=== PATIENT | female | born 1975 | race Caucasian/White ===

== ENCOUNTER 2016-08-24 12:38 | Observation (INO) | payer OTHER ==
[2016-08-24] VITALS (7 sets, daily range): BP systolic 120–150; BP diastolic 54–78; Ht 157.5 cm; Wt 65.9 kg
[~2016-08-24] VITALS: Ht 157.5 cm; Wt 65.9 kg
[2016-08-24 14:01] LABS: BASOPHILS 0.1 % (0.0-2.0); EOSINOPHILS 0.3 % (0-7); HEMATOCRIT 23.5 % (36.0-48.0); IMMATURE GRANULOCYTES 0.3 % (0-5); LYMPHOCYTES 8.9 % (15-50); MCH 26.2 pg (26.0-34.0); MCHC 30.2 g/dL (31.0-37.0); MCV 86.7 fL (80.0-100.0); MEAN PLATELET VOLUME 10.6 fL (7.4-10.4); MONOCYTES 2.3 % (2-11); NEUTROPHILS 88.1 % (40-80); PLATELET COUNT 337 10x3/uL (130-400); RBC 2.71 10x6/uL (4.00-5.40); RDW 18.8 % (11.5-14.5); WBC 7.5 10x3/uL (4.8-10.8)
[2016-08-24 14:07] LABS: HEMOGLOBIN 7.1 g/dL (12-16)
[2016-08-24 14:16] LABS: HCG SERUM NEGATIVE (NEGATIVE)
[2016-08-24 14:18] LABS: ALBUMIN 3.2 g/dL (3.4-5.0); ANION GAP 11.9 mmol/L (8-16); BILIRUBIN - TOTAL 0.16 mg/dL (0.2-1.3); CALCIUM 8.6 mg/dL (8.5-10.1); CARBON DIOXIDE 27.8 mmol/L (21.0-32.0); CREATININE - SERUM 0.9 mg/dL (0.6-1.3); POTASSIUM - SERUM 3.7 mmol/L (3.5-5.1); PROTEIN - SERUM 6.7 g/dL (6.4-8.2)
[2016-08-24 15:07] LABS: APPEARANCE CLEAR (CLEAR); BILIRUBIN NEGATIVE (NEGATIVE); COLOR YELLOW (YELLOW); GLUCOSE NEGATIVE (NEGATIVE); KETONE NEGATIVE (NEGATIVE); LEUKOCYTE ESTERASE NEGATIVE (NEGATIVE); NITRITE NEGATIVE (NEGATIVE); PROTEIN NEGATIVE (NEGATIVE); SPECIFIC GRAVITY 1.015 (1.005-1.020); UROBILINOGEN NORMAL (NORMAL)
[2016-08-24 15:12] LABS: BACTERIA NONE SEEN /hpf (NONE SEEN); EPITHELIAL CELLS 0-5 /hpf (0-5); RED CELLS - URINE 0-5 /hpf (0-5); WHITE CELLS - URINE 0-5 /hpf (0-5)
[2016-08-24 16:15] LABS: INR 0.99 (0.85-1.17)
[2016-08-24 16:16] LABS: APTT 29.7 SECONDS (22.8-39.4)
--- NOTE | 2016-08-24 20:25 | NUR ---
RECEIVED PT VIA STRETCHER FROM ED, PT AMB TO BED, GAIT STEADY, PT TO BED, IV IN RIGH WRIST INTACT INFUSING FIRST UNIT OF PRBC, PT C/O IV "HURTING", INFORMED PT THAT IV CAN BE RESITED IF SHE WANTS IT, PT STATES "YES, I HAD ASKED THEM NOT TO PUT THE IV THERE BECAUSE THAT WRIST STAYS SWOLLEN BECAUSE OF MY RHEUMATOID ARTHRITIS", PT ORIENTED TO ROOM, BED IN LOW POSITION, SIDE RAILS X 2, CALL LIGHT IN REACH, INFORMED PT THAT SARAH TALBOT RN WILL BE IN TO RESTART IV AND DO ADMITTING ASSESSMENT
--- NOTE | 2016-08-24 20:32 | NUR ---
PT REQUESTING PIV BE RESITED FROM RIGHT WRIST TO D/T RA AND INCREASED SEVERE PAIN TO PIV SITE AT THIS. PIV INFUSING WITHOUT DIFFICULTY AND NO S/S OF INFILTRATION NOTED. PT STATES THAT SHE HAD REQUESTED THAT ER NURSE NOT SITE PIV IN WRIST D/T INCREASED PAIN R/T RA. PIV RESITED TO RIGHT FOREARM PER PT REQUEST X1. TOLERATED WELL
[2016-08-24] MEDS ORDERED: PREDNISONE5 MG PO (21:08)
[2016-08-24] MEDS ORDERED: FOLIC ACID1 MG PO (21:10)
[2016-08-24] MEDS ORDERED: NYSTATIN ORAL SU5 ML PO (21:10)
[2016-08-24] MEDS ORDERED: PLAQUENIL200 MG PO ×2 (21:11→21:12)
[2016-08-24] MEDS ORDERED: METHOTREXATE2.5 MG PO (21:13)
[2016-08-24] MEDS ORDERED: TYLENOL W/CODEI1 TAB PO (21:14)
--- NOTE | 2016-08-24 21:57 | NUR ---
FIRST UNIT PRBC TRANSFUSION COMPLETED. LINE SWITCHED TO FLUSH WITH NORMAL SALINE AT 50 MLS/HR. VSS. TOLERATED TRANSFUSION WELL WITHOUT S/S OF REACTION NOTED. WILL CONT TO MONITOR AND ASSIST PRN.
--- NOTE | 2016-08-24 22:10 | NUR ---
SECOND UNIT PRBC TRANSFUSION INITIATED IN RIGHT FOREARM PIV AT 75 MLS/HR. VSS. ADMISSION ASSESSMENT COMPLETED.
--- NOTE | 2016-08-24 22:25 | NUR ---
VSS. TRANSFUSION RATE INCREASED TO 100 MLS/HR. PT TOLERATING TRANSFUSION WELL WITH NO S/S OF REACTION NOTED AT THIS TIME. WILL CONT TO MONITOR.
--- NOTE | 2016-08-24 22:40 | NUR ---
V/S REMAIN STABLE. PT TOLERATING TRANSFUSION WELL. RATE INCREASED TO 125 MLS/HR. WILL CONT TO YAW CLOSELY AND ASSIST PRN.
--- NOTE | 2016-08-24 22:55 | NUR ---
V/S CONT TO REMAIN STABLE. PT TOLERATING TRANSFUSION WELL. RATE INCREASED TO 150 MLS/HR. WILL CONT TO MONITOR AND ASSIST PRN.
[2016-08-25 00:07] VITALS: BP 134/73
--- NOTE | 2016-08-25 00:07 | NUR ---
SECOND UNIT PRBC TRANSFUSION COMPLETED. VSS. TOLERATED TRANSFUSION WELL WITH NO S/S OF REACTION NOTE.
[2016-08-25 01:07] VITALS: BP 150/82
--- NOTE | 2016-08-25 01:07 | NUR ---
CALLED TO ROOM. PT VOMITED 300 MLS EMESIS WITH FOOD PARTICLES PRESENT IN TRASH CAN. LINENS CHANGED, TRASH CHANGED. ICE CHIPS AND WATER GIVEN. CHUX CHANGED. PT UP TO BATHROOM, CHANGED PERIPAD WITH HALF DOLLAR SIZED SPOT OF BRB NOTED TO PAD, NO CLOTS NOTED. VSS FOLLOWING BLOOD TRANSFUSION, PIV SL PER ORDERS. PT BACK TO BED AND RESTING COMFORTABLY.
[2016-08-25 02:38] LABS: BASOPHILS 0.3 % (0.0-2.0); EOSINOPHILS 1.2 % (0-7); IMMATURE GRANULOCYTES 0.1 % (0-5); LYMPHOCYTES 26.6 % (15-50); MCH 27.2 pg (26.0-34.0); MCHC 31.8 g/dL (31.0-37.0); MCV 85.5 fL (80.0-100.0); MEAN PLATELET VOLUME 10.7 fL (7.4-10.4); NEUTROPHILS 64.8 % (40-80); PLATELET COUNT 288 10x3/uL (130-400); RDW 16.6 % (11.5-14.5); WBC 7.3 10x3/uL (4.8-10.8)
[2016-08-25 02:48] LABS: HEMOGLOBIN 10.5 g/dL (12-16); RBC 3.86 10x6/uL (4.00-5.40)
--- NOTE | 2016-08-25 02:58 | NUR ---
LAB RESULTS BACK, INFORMED PT OF RESULTS AND THAT THIRD UNIT OF BLOOD WOULD NOT BE TRANSFUSED BASED ON LAB RESULTS AND STANDING ORDER. VERBALIZED UNDERSTANDING. DENIES PAIN AT THIS TIME. SPOUSE AND DAUGHTER REMAIN AT BEDSIDE. BED IN LOW POSITION. CL/PHONE WITHIN REACH. STATES THAT SHE HAS NOT CHANGED PADS SINCE LAST ONE RN SEEN.
--- NOTE | 2016-08-25 04:49 | NUR ---
ROUNDS MADE. PT SLEEPING AT THIS TIME. RESPIRATIONS REGULAR, NO S/S OF DISTRESS NOTED. SPOUSE AND DAUGHTER REMAIN AT BEDSIDE.
--- NOTE | 2016-08-25 06:36 | NUR ---
ROUNDS MADE. PATIENT RESTING AT THIS TIME. OPENED EYES WHEN RN OPENED DOOR. DENIES PAIN AT THIS TIME. DENIES NEEDS. SPOUSE AND DAUGHTER SLEEPING AT BEDSIDE. CL/PHONE WITHIN REACH.
[2016-08-25 07:45] VITALS: BP 148/80
--- NOTE | 2016-08-25 07:45 | NUR ---
RECEIVED PT AWAKE AND ALERT WITH FAMILY AT BEDSIDE. STATES THAT SHE IS FEELING MUCH BETTER THAN SHE FELT YESTERDAY WITH NO DIZZINESS. LABS RESULTS REVIEWED AND THIRD UNIT OF BLOOD NOT INDICATED. S/L TO RT FOREARM SHOWS NO ENDEMA, REDNESS OR FEVER. VITALS WERE TAKEN AND DOCUMENTED. ASSESSMENT DONE AND DOCUMENTED WITH NO ABNORMALITIES NOTED. S/R UP X 2, BED IN LOWEST POSITION, CALL LIGHT WITHIN REACH. STATES NO PAIN AND NO FURTHER NEEDS AT THIS TIME. WILL CONTINUE TO MONITOR.
--- NOTE | 2016-08-25 08:00 | NUR ---
PATIENT AWAKE AND ALERT. NO NEEDS NOTED AT THIS TIME. DISCUSSED NEED FOR HOME MEDICATIONS. DR. WEINBERG HERE.
--- NOTE | 2016-08-25 08:15 | NUR ---
PROVIDED FRESH ICE WATER AND JUICE REQUESTED. PT INQUIRING WHEN SHE WILL BE ALLOWED TO GO HOME. INFORMED THAT WILL ROUND AND SHE WILL DISCUSS IT THEN. STATES NO FURTHER NEEDS AT THIS TIME.
[2016-08-25] MEDS ORDERED: MEGACE40 MG PO (08:43)
[2016-08-25] MEDS ORDERED: FERROUS SULFAT325 MG PO (08:43)
[2016-08-25] MEDS ORDERED: COLACE100 MG PO (08:43)
--- NOTE | 2016-08-25 09:39 | NUR ---
PROVIDED MEDICATION ORDERED AND EDUCATED ON NEW MEDS GIVEN. DISCUSSED APPOINTMENT. STATES THAT ASKED HER TO CALL SUNDAY MORNING TO MOVE UP THE DATE OF HER HYST. SURGERY. STATES THAT SHE WILL FOLLOW THROUGH WITH HER CALL AND APPOINTMENT. STATES NO FURTHER NEEDS AT THIS TIME.
--- NOTE | 2016-08-25 10:06 | NUR ---
DC'd S/L TO RT FOREARM WITH TIP INTACT, NO REDNESS, EDNEMA OR FEVER PRESENT. TOLERATED WELL. DISCUSSED DISCHARGE AND REAFFIRMED HER UNDERSTANDING OF THE IMPORTANCE OF FOLLOWING UP WITH PHYSICIAN. STATES UNDERSTANDING. NO FURTHER NEEDS AT THIS TIME.
--- NOTE | 2016-08-25 10:20 | NUR ---
PT SITTING ON BED. DISCUSSED DISCHARGE INSTRUCTIONS. PROVIDED MEDICATION SCRIPTS AND INSTRUCTED PT TO HAVE FILLED. SHE STATES UNDERSTANDING. GAVE PHYSICIANS FOR WOMEN'S PHONE NUMBER AND REMINDED TO CALL SUNDAY MORNING. DISCUSSED SIGNS AND SYMPTOMS THAT WOULD NECESSITATE HER TO RETURN TO ER. HEAVY BLEEDING, FAINTING, OR HAVE AN IMPENDING SENSE OF DOOM. STATES UNDERSTANDING.
--- NOTE | 2016-08-25 10:35 | NUR ---
PT WAS DISCHARGED VIA WHEELCHAIR WITH FAMILY IN ATTENDENCE.
[2016-09-05] MEDS ORDERED: PREDNISONE5 MG PO (15:35)
[2016-09-05] MEDS ORDERED: PREDNISONE2.5 MG PO (15:35)
== END 2016-08-25 10:35 | disposition home or self-care (01) ==
LOC: D.ER 12:38 → D.WS 18:23 → D.SDCHOLD 18:23 → D.WS 18:23 → OBSVTIME 18:23 → D.WS 18:41
PROVIDERS: Emergency Medicine; Physician Assistant; ADMIT Specialist
DX: D62 Acute posthemorrhagic anemia (principal); N93.9 Abnormal uterine and vaginal bleeding, unspecified; F17.200 Nicotine dependence, unspecified, uncomplicated; D25.9 Leiomyoma of uterus, unspecified

== ENCOUNTER 2016-09-07 05:10 | Inpatient (IN) | payer OTHER ==
[2016-09-05 15:58] LABS: BASOPHILS 0.2 % (0.0-2.0); EOSINOPHILS 0.1 % (0-7); HEMATOCRIT 39.5 % (36.0-48.0); HEMOGLOBIN 12.3 g/dL (12-16); IMMATURE GRANULOCYTES 0.2 % (0-5); LYMPHOCYTES 8.2 % (15-50); MCHC 31.1 g/dL (31.0-37.0); MCV 89.8 fL (80.0-100.0); MEAN PLATELET VOLUME 10.8 fL (7.4-10.4); NEUTROPHILS 86.3 % (40-80); PLATELET COUNT 297 10x3/uL (130-400); RDW 19.3 % (11.5-14.5); WBC 9.5 10x3/uL (4.8-10.8)
[2016-09-05 16:16] LABS: ANION GAP 16.5 mmol/L (8-16); CARBON DIOXIDE 22.7 mmol/L (21.0-32.0); CREATININE - SERUM 0.9 mg/dL (0.6-1.3); POTASSIUM - SERUM 4.2 mmol/L (3.5-5.1)
[~2016-09-07] VITALS: Ht 157.5 cm; Wt 70.0 kg
[2016-09-07] VITALS (13 sets, daily range): BP systolic 130–191; BP diastolic 68–111; Ht 157.5 cm; Wt 70.0 kg
[~2016-09-07 05:10] MED LIST: COLACE100 MG PO; FERROUS SULFAT325 MG PO; FOLIC ACID1 MG PO; MEGACE40 MG PO; METHOTREXATE2.5 MG PO; NYSTATIN ORAL SU5 ML PO; PLAQUENIL200 MG PO; PREDNISONE2.5 MG PO; PREDNISONE5 MG PO; TYLENOL W/CODEI1 TAB PO
[2016-09-07 06:13] LABS: HCG URINE NEGATIVE (NEGATIVE)
--- NOTE | 2016-09-07 11:00 | NUR ---
PT WAS RECEIVED FROM RECOVERY BY STRETCHER. PT TRANSFERRED TO BED. GEN- PT IS SLEEPY BUT EASILY AWAKENS. SCD'S HOOKED UP LE'S. IV INTACT AND PATENT LEFT FOREARM WITH LACTATED RINGERS INFUSING AT 125 CC/HR. DILAUDID MEDICAL PSYCHOTHERAPIST INITIATED. PT INSTRUCTED ON USE. MARQUEZ INTACT WITH METHYLENE BLUE IN URINE. LUNGS- CLEAR. HEART RRR. ABD SOFT WITH TENDERNESS WITH DRESSING INTACT. PAD WITH NO BLEEDING NOTE. PT IS ON 2 LITERS O2 NC. BED IS LOW, CALL LIGHT IN REACH AND SIDE RAILS UP X 2.
--- NOTE | 2016-09-07 11:38 | NUR ---
REASSESSED PTS PAIN. RATES PAIN 11/20. REQUESTS ANOTHER BLANKET. DENIES OTHER NEEDS. BED LOW. PHONE AND CALL LIGHT IN REACH. SIDE RAILS UP X2.
--- NOTE | 2016-09-07 12:00 | NUR ---
PT BP 178/111. NO DISTRESS NOTED. PT STATES THAT HER PAIN IS MUCH BETTER. LIGHT LOCHIA RUBRA NOTED TO SAMUEL PAD. NO LOCHIA NOTED TO BLUE PAD. INCISIONAL DRESSING CDI. NOTIFIED DR. WILLIS CONCERNING PTS BLOOD PRESSURE. ORDERED HYDROLAZINE 5 MG TO BE GIVEN NOW. PULSE 102. RESP 18. O2 SAT 98%.
--- NOTE | 2016-09-07 12:21 | NUR ---
DR. WILLIS IN ROOM WITH PT.
--- NOTE | 2016-09-07 12:45 | NUR ---
WENT TO GIVE PT APRESOLINE IV AND NOTED THAT IV WAS INFILTRATED. SWELLING NOTED BEYOND SIE. IV D'CD.
--- NOTE | 2016-09-07 13:00 | NUR ---
IV RESITED TO LEFT HAND ON THIRD ATTEMPT, WITH 22 G CATH, FLUSHES EASILY WITH CURRENT IVF OF LR. NO REDNESS OR SWELLING NOTED TO IV SITE. PT'S FAMILY AT BEDSIDE. SRUP X 2, CALL LIGHT AND PHONE WITHIN REACH.
--- NOTE | 2016-09-07 13:30 | NUR ---
PT LYING IN BED WITH FAMILY MEMBERS AT BEDSIDE. DENIES NEEDS AT THIS TIME. BED LOW. PHONE AND CALL LIGHT IN REACH. SIDE RAILS UP X2.
--- NOTE | 2016-09-07 14:05 | NUR ---
PT LYING IN BED WITH FAMILY AT BEDSIDE. RATES PAIN /10. DENIES NEEDS. BED LOW. PHONE AND CALL LIGHT IN REACH. SIDE RAILS UP X2.
--- NOTE | 2016-09-07 14:25 | NUR ---
DR. HEARD IN ROOM WITH PT. NO NEEDS NOTED AT THIS TIME.
--- NOTE | 2016-09-07 15:00 | NUR ---
ATTACHED CATHETER STRAP TO PT THIGH. DENIES NEEDS AT THIS TIME. BED LOW. PHONE AND CALL LIGHT IN REACH. SIDE RAILS UP X2.
--- NOTE | 2016-09-07 15:20 | NUR ---
PT REQUESTED SPRITE. DENIES OTHER NEEDS. BED LOW. PHONE AND CALL LIGHT IN REACH. SIDE RAILS UP X2.
[2016-09-07 15:24] LABS: BASOPHILS 0.1 % (0.0-2.0); EOSINOPHILS 0 % (0-7); HEMATOCRIT 36.9 % (36.0-48.0); HEMOGLOBIN 11.4 g/dL (12-16); IMMATURE GRANULOCYTES 0.2 % (0-5); MCH 27.9 pg (26.0-34.0); MCHC 30.9 g/dL (31.0-37.0); MCV 90.2 fL (80.0-100.0); MEAN PLATELET VOLUME 10.7 fL (7.4-10.4); MONOCYTES 7.9 % (2-11); NEUTROPHILS 84.8 % (40-80); PLATELET COUNT 289 10x3/uL (130-400); RBC 4.09 10x6/uL (4.00-5.40); RDW 19.6 % (11.5-14.5); WBC 11.1 10x3/uL (4.8-10.8)
--- NOTE | 2016-09-07 15:33 | NUR ---
PT VOMITTED APPROX. 100 CC INTO FRACTURE BEDPAN. NOTIFIED DR. WILLIS CONCERNING VOMITTING. HE STATED TO PUT IN AN ORDER OF ZOFRAN.
[2016-09-07 15:35] LABS: CALC OSMOLALITY 276 mosm/kg (275-300); CALCIUM 8.9 mg/dL (8.5-10.1); CARBON DIOXIDE 24.3 mmol/L (21.0-32.0); CHLORIDE - SERUM 107 mmol/L (98-107); CREATININE - SERUM 0.8 mg/dL (0.6-1.3); GLUCOSE 94 mg/dL (74-106); POTASSIUM - SERUM 3.9 mmol/L (3.5-5.1); SODIUM 140 mmol/L (136-145); UREA NITROGEN 7 mg/dL (7-18); eGFR NON AFRICAN AMERICAN 84 mL/min (90-120)
--- NOTE | 2016-09-07 16:10 | NUR ---
IV PATENT R HAND. PT VOMITED AND IS STILL EXPERIENCING SOME NAUSEA. ZOFRAN 4 MG IV GIVEN. PT RATES PAIN A 3/10. FAMILY AT BEDSIDE.
--- NOTE | 2016-09-07 16:25 | NUR ---
PT LYING IN BED WITH FAMILY MEMBERS AT BEDSIDE. ADMINISTERED HCTZ ORAL. SOLU CORTEF IVP AND PROTONIX IVP. PT REFUSED NICODERM PATCH. D/C'D 02 AND INSTRUCTED PT TO LET US KNOW IF SHE FELT SOB. 02 SATS HAVE REMAINED WNL. PT DENIES OTHER NEEDS AT THIS TIME. BED LOW. PHONE AND CALL LIGHT IN REACH. SIDE RAILS UP X2.
--- NOTE | 2016-09-07 17:19 | NUR ---
PT LYING IN BED RESTING. FAMILY AT BEDSIDE. RATES PAIN 0/10. DENIES NEEDS AT THIS TIME. BED LOW. PHONE AND CALL LIGHT IN REACH. SIDE RAILS UP X2.
--- NOTE | 2016-09-07 17:53 | NUR ---
PT LYING IN BED WITH FAMILY AT BEDSIDE. CHANGED PADS UNDER PT. LIGHT LOCHIA RUBRA NOTED TO PT SAMUEL PAD. CLEANED PT UP WITH WET WASH CLOTH. PT DENIES OTHER NEEDS AT THIS TIME. BED LOW. PHONE AND CALL LIGHT IN REACH. SIDE RAILS UP X2.
--- NOTE | 2016-09-07 18:00 | NUR ---
PT C/O NAUSEA AND STATES SHE FEELS LIKE SHE IS GOING TO THROW UP. NOTIFIED DR. MUNIZ AND SHE ORDERED PHENERGAN 25 MG IM.
--- NOTE | 2016-09-07 18:30 | NUR ---
ADMINISTERED PHENERGAN TO LEFT DORSOGLUTEAL. PT TOLERATED WELL. DENIES OTHER NEEDS. BED LOW. PHONE AND CALL LIGHT IN REACH. SIDE RAILS UP X2.
--- NOTE | 2016-09-07 19:10 | NUR ---
PM ROUNDS MADE, PT IS VISITING WITH FAMILY AND FRIENDS, INFORMED PT THAT I WILL DO ASSESSMENT WHEN COMPANY LEAVES, PT DENIES NEEDS AT THIS TIME
--- NOTE | 2016-09-07 19:30 | NUR ---
ASSESSMENT PER FLOW SHEET, VS OBTAINED, IV IN LEFT HAND INTACT WITH NO REDNESS OR EDEMA INFUSING VIA PUMP LR AT 125 ML/HR, DILAUDID RADIOLOGICAL DEFENSE OFFICER TO DELIVER 0.2MG/10MINS FOR PAIN CONTROL, PT RATES INC PAIN 09/22, C/O SLIGHT NAUSEA, INFORMED PT THAT ZOFRAN WAS DUE AROUND 10PM AND THAT I WILL ADM IT THEN, PT VERBALIZES UNDERSTANDING, BIKINI INC WITH LARGE DRESSING CDI WITH NO DRAINAGE NOTED, SCANT VAG BLEEDING NOTED, SAMUEL PAD CHANGED, MARQUEZ CATH INTACT, DRAINING LIGHT GREEN URINE, EMPTIED 150 MLS FROM MARQUEZ CHAMBER TO MARQUEZ BAG, ENC PT TO DRINK PLENTY OF FLUIDS, FRESH H20 SERVED, PT DENIES FLATUS, PT INST ON AND DEMONSTRATED I.S., SCD'S ON AND WORKING PROPERLY, PT DENIES NEEDS, SPOUSE AND SISTER AT BEDSIDE
--- NOTE | 2016-09-07 20:00 | NUR ---
PT AWAKE, TALKING TO SPOUSE, BEDDING PROVIDED TO SPOUSE, PT DENIES NEEDS AT THIS TIME
--- NOTE | 2016-09-07 21:25 | NUR ---
PT AWAKE, ADM 2100 MED SIVP PER MD ORDERS, SEE EMAR, EMPTIED 350 MLS OF LIGHTLY GREEN TINGED URINE FROM MARQUEZ CHAMBER TO MARQUEZ BAG, PT RATES INC PAIN 2/10, DENIES NAUSEA AT THIS TIME, DENIES NEEDS
--- NOTE | 2016-09-07 22:30 | NUR ---
PT AROUSES TO OPENING OF DOOR, DENIES NEEDS AT THIS TIME, SPOUSE AT BEDSIDE
[2016-09-08 00:18] VITALS: BP 146/77
--- NOTE | 2016-09-08 00:18 | NUR ---
PT AWAKE, VS OBTAINED, MARQUEZ CATH EMPTIED, SCD'S CONTINUE ON AND WORKING PROPERLY, PT DENIES NEEDS OR PAIN AT THIS TIME
--- NOTE | 2016-09-08 02:10 | NUR ---
PT AROUSES TO OPENING OF DOOR, DENIES NEEDS OR PAIN AT THIS TIME, SPOUSE AT BEDSIDE
[2016-09-08 04:21] VITALS: BP 141/71
--- NOTE | 2016-09-08 04:21 | NUR ---
PT RESTING WITH EYES CLOSED, AROUSES TO SOFT VERBAL STIMULATION, VS OBTAINED, I&O'S COLLECTED, ICE PACK LEAKED, GOWN, SHEET, AND BLANKET CHANGED, FRESH ICE PACK PROVIDED, PT RATES INC PAIN 08/22, NEW BAG OF LR HUNG, SEE EMAR, PT REQUESTED AND SERVED DIET LEMON TABLE [place], PT DENIES FURTHER NEEDS, SPOUSE AT BEDSIDE
--- NOTE | 2016-09-08 06:20 | NUR ---
PT RESTING WITH EYES CLOSED, RESP QUIET, NO DISTRESS NOTED, LEFT UNDISTURBED AT THIS TIME, SPOUSE AT BEDSIDE
--- NOTE | 2016-09-08 06:42 | NUR ---
LAB TO ROOM FOR BLOOD DRAW
[2016-09-08 07:13] LABS: BASOPHILS 0.1 % (0.0-2.0); EOSINOPHILS 0.6 % (0-7); HEMATOCRIT 37.1 % (36.0-48.0); HEMOGLOBIN 11.5 g/dL (12-16); IMMATURE GRANULOCYTES 0.1 % (0-5); LYMPHOCYTES 13.5 % (15-50); MCH 27.8 pg (26.0-34.0); MCV 89.6 fL (80.0-100.0); MEAN PLATELET VOLUME 10.8 fL (7.4-10.4); MONOCYTES 8.6 % (2-11); NEUTROPHILS 77.1 % (40-80); PLATELET COUNT 278 10x3/uL (130-400); RBC 4.14 10x6/uL (4.00-5.40); RDW 19.5 % (11.5-14.5)
[2016-09-08 07:20] LABS: WBC 8.3 10x3/uL (4.8-10.8)
[2016-09-08 07:28] LABS: ANION GAP 11.8 mmol/L (8-16); CALCIUM 9.6 mg/dL (8.5-10.1); CARBON DIOXIDE 28.9 mmol/L (21.0-32.0); CREATININE - SERUM 0.9 mg/dL (0.6-1.3); POTASSIUM - SERUM 3.7 mmol/L (3.5-5.1)
[2016-09-08 07:30] VITALS: BP 152/81
--- NOTE | 2016-09-08 07:40 | NUR ---
PATIENT IS AWAKE AND ALERT, DR. WILLIS HAS BEEN IN FOR ASSESSMENT. SHE C/O FEELING LIKE SHE NEEDS TO VOID, HER CATHETER HAS NOT DRAINED WELL THROUGH THE NIGHT, REQUIRING ADJUSTMENTS TO EMPTY HER BLADDER. DESPITE MY ADJUSTMENTS, ONLY 60CC DRAINED FROM BLADDER. REMOVED THE MARQUEZ CATHETER, SALINE LOCKED HER IV AND PROVIDED A REGULAR BREAKFAST AFTER ASSESSMENT COMPLETE. HER BOWEL SOUNDS ARE QUIET. ENCOURAGED HER TO TAKE IT SLOWLY AND DRINK PLENTY OF FLUIDS. ALSO DISCUSSED THE IMPORTANCE OF WALKING AROUND TO STIMULATE HER BOWELS AND ENCOURAGE GAS TO RELEASE. SHE STATES THAT SHE ISN'T YET PASSING GAS. HER LUNGS ARE DIMINISHED IN THE BASES BILATERALLY. DISCUSSED THE WAY IN WHICH THE INCENTIVE SPIROMETER WORKS AND HOW THIS IS IMPROTANT TO HER. SHE EXPRESSED UNDERSTANDING. HER CAME IN AND IS AT THE BEDISDE FOR THIS INSTRUCTION. ALSO DISCUSSED THE IMPORTANCE OF SMOKING CESSATION. RRR OF THE HEART. B/P NOTED.
--- NOTE | 2016-09-08 08:25 | NUR ---
PATIENT STATES THAT HER PAIN IS RATED A 2 ON THE PAIN SCALE. SHE IS RESTING WITH HER HOB 60 DEGREES WATCHING TV. AT THE BEDSIDE. DENIED NEEDS. ATE 25% OF HER BREAKFAST.
--- NOTE | 2016-09-08 09:40 | NUR ---
PATIENT RESTING, WATCHING TV WITH HER . NO NEEDS NOTED. CALL LIGHT IS WITHIN REACH.
--- NOTE | 2016-09-08 10:54 | NUR ---
CALL PLACED TO PHARMACY FOR MEDICATIONS. TOPHER IS RESTING QUIETLY IN HER BED, HOB ELEVATED 45 DEGREES. SHE HAD HER EYES CLOSED AND APPEARS TO HAVE BEEN SLEEPING WHEN SHE LOOKED UP AT ME. SHE STATES THAT HER PAIN IS MUCH BETTER. REMINDED HER TO CALL FOR ASSISTANCE WHEN SHE GETS UP TO THE RESTROOM TO URINATE. SHE DENIED THIS FEELING AT THIS TIME, STATES MAYBE IN A LITTLE WHILE. SPOUSE AT THE BEDISDE WATCHING TV. DENIED NEEDS CALL LIGHT IS WITHIN REACH, SIDERAILS UP X2. BED IN LOW POSITION.
--- NOTE | 2016-09-08 11:42 | NUR ---
PATIENT GIVEN PO PAIN MEDICATION FOR ABDOMINAL INCISION PAIN THAT SHE RATES A 2 DESPITE PURSED LIP BREATHING WHEN MOVING AROUND IN HER BED. SHE DOES ALSO C/O THE IV SL IN HER LEFT HAND HURTING HER. REMOVED. SHE QUESTIONS THE NEED FOR HER ARTHRITIS MECICATIONS. WILL DISCUSS WITH MD. SPOUSE IS AT THE BEDSIDE. CALL LIGHT IS WITHIN HER REACH. MONITORING.
--- NOTE | 2016-09-08 12:08 | NUR ---
CALL PLACED TO DR. WILLIS CONCERNING TOPHER'S REQUEST TO RESUME HER STEROIDS AND PLAQUENIL. HE STATES THAT HE WILL REVIEW THESE AND RESTART NECESSARY MEDICATIONS. INFORMED THE PATIENT. SHE IS EATING HER LUNCH AND DENIES NEEDS.
--- NOTE | 2016-09-08 12:19 | NUR ---
DR. AGARWAL HERE TO VISIT PATIENT.
--- NOTE | 2016-09-08 12:31 | NUR ---
TOPHER CURRENTLY RATES HER PAIN A 0. HER SPOUSE HAS GONE TO LUNCH. SHE STATES THAT WHEN HE RETURNS, THEY WILL WALK OUT INTO THE HALLWAY. SHE ATE 50% OF HER LUNCH AND DENIES PASSING GAS YET.
[2016-09-08 12:38] VITALS: BP 128/68
--- NOTE | 2016-09-08 13:28 | NUR ---
PATIENT HAS BEEN UP TO THE RESTROOM X2. IS CURRENTLY OUT AMBULATING IN THE HALLWAY. SHE RATES HER PAIN ABOUT A 0 THOUGH SHE IS SLOW AND PURSED LIP BREATHING AT TIMES. ENCOURAGED TO GO SLOW AND STAND UP STRAIGHT. SPOUSE WALKING WITH HER.
--- NOTE | 2016-09-08 13:47 | NUR ---
PATIENT RETURNED TO HER ROOM. SAID "I MADE IT" AND ACTUALLY APPEARS MORE COMFORTABLE. DENIES ANY INCREASE OF PAIN.
--- NOTE | 2016-09-08 15:48 | NUR ---
TOPHER IS UP TO THE RESTROOM WITH SPOUSE'S STAND BY ASSISTANCE. SHE IS RATING HER PAIN A 0. TOOK MOTRIN ANTICIPATING DISCOMFORT WHILE SHOWERING. LINENS COMPLETELY CHANGED. SHE DENIES ANY BLEEDING. TEACHING REGARDING WOUND CARE PROVIDED. SHE HAS DIAL SOAP TO WASH WITH.
--- NOTE | 2016-09-08 16:30 | NUR ---
PATIENT IS RESTING IN HER BED, FAMILY AT THE BEDISDE VISITING. NO NEEDS NOTED.
[2016-09-08 17:00] VITALS: BP 140/68
--- NOTE | 2016-09-08 17:52 | NUR ---
PATIENT RESTING WITH HOB UP 45 DEGREES. SHE STATES THAT HER PAIN IS A 2, "MY ARMS ARE BEGINING TO HURT FROM NOT TAKING MY MEDICINE." SHE STATES THAT SHE WOULD LIKE TO HOLD OFF ON TAKING HER NORCO FOR A WHILE. SHE STATES THAT SHE DOES FEEL MUCH BETTER SINCE HAVING A SHOWER AND PLANS TO WALK WITH HER SPOUSE WHEN HE RETURNS, SHE STILL ISN'T PASSING GAS. OFFERED TO MAKE SOME COFFEE, SHE'D LIKE THAT.
--- NOTE | 2016-09-08 19:14 | NUR ---
REPORT GIVEN TO SOFIA CRESPO RN. PATIENT HAS REQUESTED PAIN MEDICATION. SHE IS GOING TO ADDRESS.
[2016-09-08 19:15] VITALS: BP 148/85
--- NOTE | 2016-09-08 19:15 | NUR ---
SHIFT ASSESSMENT AND VITAL SIGNS DONE. VS STABLE. ABDOMEN SOFT WITH ACTIVE BS X 4. LUNGS CLEAR. LOW TRANSVERSE INCISION WITH ANTHONY CLEAN/INTACT. PERIPAD IN PLACE OVER ANTHONY. PT REPORTS SMALL AMOUNT OF SPOTTING UPON VOIDING BUT NO CLOTS. PEDAL PULSES STRONG BILATERALLY. SCDS OFF AT THIS TIME. REMINDED PT THAT SCDS ARE TO BE REPLACED AT HS. INSTRUCTED PT ON USE OF INCENT.SPIROMETER. INSTRUCTED PT TO AMBULATE BEFORE HS. PT STATES "IM HURTING BUT I THINK SOME IT IS MY ARTHRITIS." PT REQUESTS TO TAKE PERSONAL PREDNISONE. INFORMED PT THAT THIS CANNOT BE DONE UNLESS MD OKS. PT STATES "I SHOULD BE OK UNTIL AM". PT REQUESTS PAIN MED. WILL GIVE JOHNNIE. NO OTHER REQUESTS AT THIS TIME.
--- NOTE | 2016-09-08 19:22 | NUR ---
NORCO 10 PO GIVEN AT THIS TIME. PT PLANS TO WALK TO HELP WITH STIFFNESS IN A FEW MINUTES. DENIES ANY ASSISTANCE NEEDED. AT BEDSIDE.
--- NOTE | 2016-09-08 19:30 | NUR ---
PT AMBULATING IN KEY. NOTED SLOW GAIT AND SLIGHTLY STOOPED POSTURE. NO ASSISTANCE REQUIRED FROM . PT PLANS TO AMBULATE TO FRONT DOOR FOR FRESH AIR AND BACK. INFORMED PT TO GET WHEELCHAIR AT DELIVERY TABLE OPERATOR IF NEEDED FOR RETURN TRIP.
--- NOTE | 2016-09-08 20:00 | NUR ---
PT RETURNED FROM WALK. NOTED BETTER POSTURE UPON RETURN. NO REQUESTS AT THIS TIME.
--- NOTE | 2016-09-08 22:00 | NUR ---
ROOM CHECK DONE. PT SITTING UP IN BED WATCHING TV. DENIES ANY REQUESTS AT THIS TIME. INSTRUCTED TO CALL PRN.
[2016-09-09 00:30] VITALS: BP 126/71
--- NOTE | 2016-09-09 00:30 | NUR ---
VITAL SIGNS DONE. PT ASLEEP ON BACK WITH SR UP X 2. IN CHAIR AT BEDSIDE. EASILY AWAKENED AND DENIES ANY REQUESTS AT THIS TIME.
--- NOTE | 2016-09-09 02:30 | NUR ---
ROOM CHECK DONE. PT AND ASLEEP/RESTING QUIETLY. DID NOT AWAKEN WHEN NURSE OPENED DOOR. NO APPARENT S/S OF DISTRESS NOTED.
--- NOTE | 2016-09-09 04:00 | NUR ---
ROOM CHECK DONE. PT ASLEEP ON BACK. DID NOT AWAKEN WHEN DOOR OPENED. ROUSED AND STATES NO NEEDS AT THIS TIME. WILL CALL PRN.
[2016-09-09 05:35] VITALS: BP 148/67
--- NOTE | 2016-09-09 05:35 | NUR ---
VITAL SIGNS DONE. PT STATES SHE IS HURTING A LITTLE BUT REFUSES PAIN MEDS. STATES "I JUST NEED TO MOVE AROUND SOME". INSTRUCTED PT TO CALL WHEN DECIDES SHE NEEDS MEDS/ASSISTANCE.
--- NOTE | 2016-09-09 06:10 | NUR ---
LEAVING ROOM. STATES PT IS RESTING RIGHT NOW. DENIES ANY ASSISTANCE/REQUESTS.
--- NOTE | 2016-09-09 06:45 | NUR ---
DR. WILLIS HERE FOR ROUNDS.
[2016-09-09 07:20] VITALS: BP 151/72
--- NOTE | 2016-09-09 07:23 | NUR ---
PT AWAKE, RESTING IN BED, MOANING DUE TO RA PAIN IN SHOULDERS, SHE HAS BEEN OFF HER RA MEDS. CALL TO DR. WILLIS. HE ADVISED PT MAY RESUME AND TAKE HER OWN MEDS THIS AM. LOW TRANSVERSE ABD INC C/D/I WITH ANTHONY, COVERED WITH SAMUEL PAD FOR COMFORT. NORCO 10 GIVEN. REG DIET PROVIDED. NO OTHER NEEDS AT THIS TIME. D/C ORDER REC'D.
[2016-09-09] MEDS ORDERED: IBUPROFEN600 MG PO (07:45)
[2016-09-09] MEDS ORDERED: HYDROCODONE-APA1 TAB PO (07:45)
[2016-09-09] MEDS ORDERED: HYDROCHLOROTHIA25 MG PO (07:46)
--- NOTE | 2016-09-09 08:12 | NUR ---
PT RESTING EASILY. STATES PAIN LEVEL 1/10.
--- NOTE | 2016-09-09 09:26 | NUR ---
PT RESTING WITH EYES CLOSED, EVEN RESP. SIG OTHER AT BEDSIDE.
--- NOTE | 2016-09-09 10:00 | NUR ---
D/C INSTRUCTIONS EXPLAINED TO PT. VOICED UNDERSTANDING. COPIES OF ALL GIVEN, WELL WRITTEN RX'S FOR NORCO, IBUPROFEN AND HCTZ PER DR. WILLIS.
--- NOTE | 2016-09-09 10:20 | NUR ---
D/C'D HOME VIA W/C TO PRIVATE CAR.
--- NOTE | 2016-09-12 14:40 | OP ---
PATIENT NAME: KYMBERLY FUENTES MEDICAL RECORD: [id number] :73 LOCATION:[id number] ADMISSION DATE:09/07/16 SURGEON: FABIAN FLEMING MD DATE OF OPERATION: 09/07/2016 PREOPERATIVE DIAGNOSES: 1. Menorrhagia. 2. Fibroids. 3. Severe anemia. POSTOPERATIVE DIAGNOSES: 1. Menorrhagia. 2. Fibroids. 3. Severe anemia. 4. 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 PROCEDURES: Supracervical hysterectomy, a left salpingo-oophorectomy and a right salpingectomy. SURGEON: Fabian Fleming MD ESTIMATED BLOOD LOSS: 300 cc. INTRAVENOUS FLUIDS: Per anesthesia record. SPECIMENS: 1. Uterus with partial cervix. 2. Left tube and ovary. 3. Right fallopian tube. COMPLICATIONS: None apparent. PROCEDURE IN DETAIL: The patient was taken to the operating room where general anesthesia was achieved without difficulty. The patient was then prepped and draped in normal sterile fashion in the dorsal supine position. SCDs were on and functioning normally. A Conner catheter had been placed and was draining freely. At this point, a repeat Pfannenstiel skin incision was made with the patient's previous scar. This was extended downward to the underlying subcutaneous fat to level of the fascia, which was then excised in the midline using the scalpel and then extended bilaterally using the Duke scissors. The superior and inferior aspects of the fascial incision were then grasped with Dwaine clamps times 2, tented upward, and sharply dissected from the underlying rectus muscle using the Duke scissors and Bovie cautery. At this point, the peritoneum was entered bluntly at the superior aspect of the incision. Peritoneal incision was extended downward and laterally using the Metzenbaum scissors. The uterus was then identified. The bowel was packed with 3 moist lap sponges and the uterus was then delivered upward with some difficulty through the incision. A Aziza retractor was placed anteriorly and we visualized the bladder. At this point, the bilateral round ligaments were clamped times 2 with Dwaine clamps and the round ligaments were cut and then suture ligated with 0 Vicryl suture. A bladder flap then created by careful dissection of the anterior leaf of the broad ligament across the lower uterine segment. Multiple areas of scarring from the previous section were dissected using the Metzenbaum scissors. At this point, attention was turned to the posterior leaf of broad ligament where defects were made bilaterally and OPERATIVE REPORT [id number] KYMBERLY FUENTES curved Floresita clamps were placed across the uteroovarian ligament and proximal fallopian tubes. Tissue was noted to be under significant tension and a portion of the left pedicle was found to loosen from the clamp. These pedicles were free tied with 0 Vicryl and then suture ligated medially with good hemostasis noted on the right, some bleeding noted on the left. The uterine arteries were then skeletonized using the Metzenbaum scissors. They were clamped with curved Floresita clamps, cut and suture ligated. At this point, further dissection of the bladder was performed to level of its investment with the vagina which was still found to be above the cervix. Straight Floresita clamps were placed on the cardinal ligaments. This was then cut and suture ligated with 0 Vicryl suture. The cervix was then amputated and the uterus with partial cervix removed. It was felt that for removal of the cervix put the patient at risk for a significant bladder injury, so at this point, the cervical stump was closed using 0 Vicryl suture in a [id number] fashion. Good hemostasis was noted. Attention was then turned to the left side where a portion of the infundibulopelvic ligament was found to be bleeding. Because of this bleeding, a curved Floresita clamp was placed across the infundibulopelvic ligament at the level of bleeding. The left tube and ovary was then removed using the Duke scissors and this was then free tied with 0 Vicryl ties and then suture ligated medially with good hemostasis then noted. Attention was then turned to the right fallopian tube, which was then clamped at its proximal end using a curved Floresita clamp. The tube was then excised and the pedicle was then ligated with a 0 free tie and then a 2-0 suture with good hemostasis again noted. Several areas of the attenuated cervical stump were then oversewn with 2-0 Vicryl. Several areas of bleeding at the superior aspect of the bladder dissection was then oversewn with 2-0 Vicryl until good hemostasis was noted. The pelvis was thoroughly irrigated. All laps were removed from the abdomen and counts were correct times 2. The fascia was then repaired with 0 loop PDS times 1 and the skin repaired with amber. The patient tolerated the procedure well, was transported to postanesthesia recovery stable without incident. TRANSINT:[id number] Voice Confirmation ID: [id number] DOCUMENT ID: [id number] FABIAN FLEMING MD at 1437 CC: [id number] DICTATION DATE: 09/07/16 1123 SENIOR LOAN OFFICER: 09/07/16 1201 [place] [address]
== END 2016-09-09 10:21 | disposition home or self-care (01) | DRG 743 ==
LOC: D.SDCHOLD 05:10 → D.WS 05:10 → D.SDCHOLD 07:30 → D.WS 09:07 → D.SDCHOLD 14:19 → D.WS 09-09 10:21
PROVIDERS: ADMIT Obstetrics & Gynecology
PROC: 0UT70ZZ Resection of Bilateral Fallopian Tubes, Open Approach (ICD-10-PCS; 2016-09-07)
PROC: 0UT10ZZ Resection of Left Ovary, Open Approach (ICD-10-PCS; 2016-09-07)
PROC: 0UT90ZZ Resection of Uterus, Open Approach (ICD-10-PCS; principal; 2016-09-07 07:30)
DX: N92.0 Excessive and frequent menstruation with regular cycle (principal); D25.9 Leiomyoma of uterus, unspecified; D64.9 Anemia, unspecified; Z72.0 Tobacco use; M06.9 Rheumatoid arthritis, unspecified; I10 Essential (primary) hypertension; R51 Headache; N32.89 Other specified disorders of bladder

== ENCOUNTER → 2017-05-24 21:55 | Outpatient (CLI) | payer OTHER ==
[2016-09-07 14:06] VITALS: BMI 28.2
[~2017-05-24 21:55] MED LIST changes: +HYDROCHLOROTHIA25 MG PO; +HYDROCODONE-APA1 TAB PO; +IBUPROFEN600 MG PO
== END | disposition home or self-care (01) ==
LOC: D.MAMMO 15:15
DX: Z12.31 Encounter for screening mammogram for malignant neoplasm of breast (principal)

== ENCOUNTER → 2017-06-21 17:41 | Outpatient (CLI) | payer OTHER ==
[2016-09-07 14:06] VITALS: BMI 28.2
== END | disposition home or self-care (01) ==
LOC: D.MAMMO 14:30
DX: R92.8 Other abnormal and inconclusive findings on diagnostic imaging of breast (principal)

== ENCOUNTER 2018-11-28 18:31 | Emergency (ER) | payer OTHER ==
[~2018-11-28] VITALS: Ht 157.5 cm; Wt 70.5 kg
[2018-11-28 18:51] VITALS: Ht 157.5 cm; Wt 70.5 kg
[2018-11-28] MEDS ORDERED: ENBREL25 MG/0.5 SQ (18:54)
[2018-11-28 19:12] LABS: BASOPHILS 0.5 % (0-2); EOSINOPHILS 2.4 % (0-7); HEMATOCRIT 39.9 % (36.0-48.0); HEMOGLOBIN 14.3 g/dL (12-16); IMMATURE GRANULOCYTES 0.2 % (0-5); LYMPHOCYTES 50.6 % (15-50); MCH 32.8 pg (26.0-34.0); MCHC 35.8 g/dL (31.0-37.0); MCV 91.5 fL (80.0-100.0); MEAN PLATELET VOLUME 10.6 fL (7.4-10.4); MONOCYTES 7.4 % (2-11); NEUTROPHILS 38.9 % (40-80); RBC 4.36 10x6/uL (4.00-5.40); RDW 13.2 % (11.5-14.5); WBC 4.2 10x3/uL (4.8-10.8)
[2018-11-28 19:15] LABS: PLATELET COUNT 186 10x3/uL (130-400)
[2018-11-28 19:21] LABS: APPEARANCE CLEAR (CLEAR); BILIRUBIN NEGATIVE (NEGATIVE); COLOR YELLOW (YELLOW); GLUCOSE NEGATIVE (NEGATIVE); KETONE NEGATIVE (NEGATIVE); NITRITE NEGATIVE (NEGATIVE); PROTEIN NEGATIVE (NEGATIVE); UROBILINOGEN NORMAL (NORMAL)
[2018-11-28 19:36] LABS: ALBUMIN 3.9 g/dL (3.4-5.0); ALKALINE PHOSPHATASE 80 U/L (46-116); ALT (SGPT) 25 U/L (10-68); BILIRUBIN - TOTAL 0.22 mg/dL (0.2-1.3); CALC OSMOLALITY 276 mosm/kg (275-300); CALCIUM 8.7 mg/dL (8.5-10.1); CARBON DIOXIDE 30.2 mmol/L (21.0-32.0); CHLORIDE - SERUM 103 mmol/L (98-107); CREATININE - SERUM 0.8 mg/dL (0.6-1.3); GLUCOSE 90 mg/dL (74-106); POTASSIUM - SERUM 3.8 mmol/L (3.5-5.1); PROTEIN - SERUM 8.2 g/dL (6.4-8.2); SODIUM 140 mmol/L (136-145); UREA NITROGEN 8 mg/dL (7-18); eGFR NON AFRICAN AMERICAN 82 mL/min (90-120)
[2018-11-28] MEDS ORDERED: TORADOL10 MG PO (21:30)
[2018-11-28 21:45] VITALS: BP 132/59
== END 2018-11-28 21:45 | disposition home or self-care (01) ==
LOC: D.ER 18:31
PROVIDERS: Emergency Medicine
DX: R07.81 Pleurodynia (principal)

== ENCOUNTER 2019-08-26 19:30 | Outpatient (CLI) | payer OTHER ==
[2018-11-28 18:51] VITALS: BMI 28.4
[~2019-08-26 19:30] MED LIST changes: +ENBREL25 MG/0.5 SQ; +TORADOL10 MG PO
== END 2019-08-26 23:59 | disposition home or self-care (01) ==
LOC: D.MAMMO 19:30
PROVIDERS: ATTEND Family Medicine
DX: Z12.31 Encounter for screening mammogram for malignant neoplasm of breast (principal)